=== PATIENT | male | born 1970 | race Caucasian/White ===

== ENCOUNTER 2023-06-08 06:04 | Day surgery (SDC) | payer OTHER, SELFPAY ==
[2023-06-05 07:06] VITALS: BMI 32.5
[2023-06-05 08:57] LABS: Urine Albumin Negative (Neg - Trace); Urine Bilirubin Negative (Negative); Urine Character Clear (Clear); Urine Color Yellow; Urine Glucose Negative (Negative); Urine Ketone Negative (Negative); Urine Leukocyte Negative (Negative); Urine Nitrite Negative (Negative); Urine Occult Blood Negative (Negative); Urine Urobilinogen Negative (Neg - 1+)
[2023-06-05 09:02] LABS: Hematocrit 46.4 % (39.0-52.0); Hemoglobin 15.4 g/dL (13.0-18.0); Mean Corp Hgb Conc. 33.2 g/dL (33.0-37.0); Mean Corpuscular Hgb 30.6 pg (27.0-31.0); Mean Corpuscular Volume 92.1 fL (80.0-94.0); Mean Platelet Volume 11.2 fL (7.4-10.4); Platelet Count 264 10^3/uL (130-400); Red Blood Cell Count 5.04 10^6/uL (4.70-6.10); Red Cell Dist. Width 13.4 % (11.5-14.5); White Blood Cell Count 6.7 10^3/uL (4.8-10.8)
[2023-06-05 09:13] LABS: Blood Urea Nitrogen 17 mg/dl (9-20); Calcium 9.2 mg/dl (8.4-10.2); Carbon Dioxide 30 mmol/L (22-30); Chloride 106 mmol/L (98-107); Estimated Creatinine Clearance > 125 ml/min; Glucose 103 mg/dl (70-99); Potassium 4.4 mmol/L (3.5-5.1); Sodium 139 mmol/L (135-145); eGFR > 60.00
[2023-06-05 09:17] LABS: APTT 35.9 Sec (23.4-35.0); INR 0.99; PT 12.9 Sec (11.4-14.6)
[2023-06-08] VITALS (11 sets, daily range): BP systolic 107–137; BP diastolic 55–93; BMI 32.5
[2023-06-08] MEDS: NORMOSOL-R 1000 IV (06:28)
[2023-06-08] MEDS: CYSVIEW KIT 100 MG INTRAVES (06:34)
[2023-06-08] MEDS: SYRINGE NON-PUMP 50 MG IRRIG ×2 (08:22→08:23)
[2023-06-08] MEDS: SYRINGE NON-PUMP 50 ML IRRIG ×2 (08:22→08:23)
[2023-06-08] MEDS: Pyridium 200 MG PO (08:49)
== END 2023-06-08 10:14 | disposition home or self-care (01) ==
LOC: SDS 06:04
PROVIDERS: ATTENDING PHYSICIAN Specialist; FAMILY PHYSICIAN Internal Medicine
DX: Z85.51 Personal history of malignant neoplasm of bladder (principal)
CPT/HCPCS: 52214; 52204; C9738; 88307; 36415; 80048; 81003; 85027; 85610; 85730; A9589